=== PATIENT | female | born 1975 | race Caucasian/White ===

== ENCOUNTER 2016-07-08 15:05 | Emergency (ER) | payer BC, MEDICAID ==
[2016-07-08] MEDS ORDERED: Sodium Chloride 0.9% 1,000 ML IV ONE (15:40)
--- NOTE | 2016-07-08 15:50 | EDM.PDOC ---
ED HPI NEURO - General Chief Complaint: Neuro Symptoms/Deficits Time Seen by Provider: 07/08/16 15:25 Source of Information: Reports: EMS, Family History Limitations: Reports: Altered mental status - History of Present Illness INITIAL COMMENTS - FREE TEXT/NARRATIVE: Patient brought to ER via ambulance with report of being unresponsive. Her mother and father are here and say they last talked to her and know her to be normal four days ago. She lives with her boyfriend who is currently at work; he told them she has been sleeping all weekend. He is at work and I am trying to reach him for further details. She takes Clonazepam daily and her parents tell me she just received in the mail today a supply of 200 tablets of 1 mg Clonazepam from [facility]. She also filled Clonazepam 1 mg #30 tablets on 05/24 and 06/20 at [facility]. These bottles could not be found per her parents. Pt received Narcan IM and intranasal (two doses) en route with no response or improvement. Finger stick glucose in ER is 76. Pt's parents tell me she has had two episodes similar to this when she lived in [place] and was found to be overdose related but not sure what meds. - Related Data Allergies/ADRs: Allergies Allergy/AdvReac Type Severity Reaction Status Date / Time desvenlafaxine succinate Allergy Other Verified 07/08/16 15:19 [From [employer]] Home Meds: Home Meds ALPRAZolam [Alprazolam] 0.25 mg PO Q8H PRN 08/21/15 [History] DULoxetine HCl [Cymbalta] 60 mg PO DAILY 08/21/15 [History] Metoprolol Succinate [Toprol XL 50mg] 50 mg PO DAILY 08/21/15 [History] Pantoprazole Sodium [Pantoprazole Sodium] 40 mg PO DAILY 08/21/15 [History] Albuterol Sulfate [Proventil Hfa] 2 puff INH Q4H PRN 07/08/16 [History] ClonazePAM [KlonoPIN] 1 mg PO BEDTIME 07/08/16 [History] Gabapentin [Neurontin] 600 mg PO TID 07/08/16 [History] Zolpidem Tartrate [Ambien Cr] 1 tab PO BEDTIME PRN 07/08/16 [History] buPROPion HCl [Wellbutrin Xl] 300 mg PO DAILY 07/08/16 [History] Past Medical History Other Cardiovascular History: h/o PSVT and diastolic HTN Other Gastrointestinal History: h/o bleeding ulcers Social & Family History - Tobacco Use Smoking Status *Q: Never Smoker - Alcohol Use Days Per Week of Alcohol Use: 0 - Recreational Drug Use Recreational Drug Use: No ED ROS GENERAL - Review of Systems Review Of Systems: Unable To Obtain ED EXAM, NEURO - Physical Exam Exam: See Below Exam Limited By: Altered mental status General Appearance: WD/WN, no apparent distress, obtunded, other (eyes are open and she briefly makes eye contact but not consistently or reliably. She doesn' t cooperate with exam and resists moderately at times.) Eye Exam: left eye: abnormal pupil (sluggish to constrict with light compared to right), bilateral eye: EOMI (seems normal but patient doesn't cooperative with commands) Ears: normal external exam, normal canal, normal TMs Nose: normal inspection, normal mucosa, no blood Throat/Mouth: Normal lips, No airway compromise Head Exam: atraumatic, normocephalic Neck: supple, full range of motion Respiratory/Chest: no respiratory distress, lungs clear, normal breath sounds, no accessory muscle use Cardiovascular: regular rate, rhythm, no edema, no murmur GI/Abdominal: normal bowel sounds, soft, non tender, no organomegaly, no distention Neurological: no motor/sensory deficits (as far as I can elicit), withdraws to pain, Babinski (normal), other (Glascow score 9; Patient resists quite strongly when attempts at eye exam are made. She doesn't cooperate well with exam but does squeeze with both hands approximately equally. No sign of assymetry or weakness. No apparent facial droop but doesn't smile or speak on command.) Extremities: normal range of motion, no pedal edema Skin Exam: Warm, Dry, Intact, Normal color, No rash Course - Vital Signs Last Recorded V/S: Last Vital Signs Temp 97.4 F 07/08/16 15:25 Pulse 95 07/08/16 15:25 Resp 24 H 07/08/16 15:25 BP 142/89 H 07/08/16 15:25 Pulse Ox 98 07/08/16 15:25 - Orders/Labs/Meds Orders: Active Orders 24 hr Category Date Time Status Cervical Spine wo Cont [CT] Stat Exams 07/08/16 15:37 Ordered Head wo Cont [CT] Stat Exams 07/08/16 15:37 Ordered ACETAMINOPHEN [CHEM] Stat Lab 07/08/16 15:40 Ordered CBC WITH AUTO DIFF [HEME] Stat Lab 07/08/16 15:37 Ordered COMPREHENSIVE METABOLIC PN,CMP [CHEM] Stat Lab 07/08/16 15:37 Ordered DRUG SCREEN, URINE [URCHEM] Stat Lab 07/08/16 15:37 Uncollected ETHANOL BLOOD MEDICAL [CHEM] Stat Lab 07/08/16 15:37 Ordered HCG QUALITATIVE,SERUM [CHEM] Stat Lab 07/08/16 15:37 Ordered UA W/MICROSCOPIC [URIN] Stat Lab 07/08/16 15:37 Uncollected Sodium Chloride 0.9% @ 999 MLS/HR (1000ml) Med 07/08/16 15:40 Ordered Sodium Chloride 0.9% [Normal Saline] 1,000 ml IV .BOLUS Medication Orders Sodium Chloride (Normal Saline) 1,000 mls @ 999 mls/hr IV .BOLUS ONE Stop: 07/08/16 16:40 Labs: Laboratory Tests 07/08/16 Range/Units 15:29 POC Glucose 78 (74-106) mg/dl Meds: Medications Generic Name Dose Route Start Last Admin Trade Name Freq PRN Reason Stop Dose Admin Sodium Chloride 1,000 mls @ 999 mls/hr 07/08/16 15:40 Normal Saline IV 07/08/16 16:40 .BOLUS ONE - Re-Assessments/Exams Free Text/Narrative Re-Assessment/Exam: 07/08/16 16:41 I was able to talk with Clive (the boyfriend) who told me that Gurwinder seemed normal yesterday (Friday) morning when she left for work. She came home early from work at 5:30 but he couldn't figure out exactly why she was home early. They watched TV and visited; she seemed quite normal. She went to bed at 8:00 and was sleeping when he went to bed a few hours later. At 0230 this morning he awoke to see her standing by the bed looking down at him. She wouldn't say anything; she got back in bed and sat up for about 30 minutes; still wouldn't speak. She didn't seem uncomfortable. He doesn't think she slept much more if at all. When he got up for work this morning she was holding on to him and didn 't want to let go. He said she was making good eye contact and didn't seem to be in pain. He isn't sure if she could have taken an overdose. He doesn't really monitor what or when she takes her meds. Parents brought in pt's med bottle for Ambien #7 that was filled 07/03 and there is one Ambien tablet left; also in the bottle are a few tablets that our pharmacist determined to be Trazodone which she does not have a Rx for. Head CT appears normal to me and we are having technical difficulties with sending to the radiologist for their read/report. 07/08/16 16:54 Patient appears quite stable at departure with ambulance crew. She seems to be a little more alert but isn't speaking. Cries easily but no sign of pain. 07/08/16 16:58 5-6 attempts at a lab draw were made but unsuccessful. An IV was started but no blood could be obtained there either. I discussed case with Dr. Vieyra at ER in [facility] who accepted patient for transfer. Departure - Departure Time of Disposition: 16:40 Disposition: DC/Tfer to Acute Hospital 02 Condition: fair, serious Clinical Impression: Unresponsive state Forms: ED Department Discharge - My Orders Last 24 Hours: My Active Orders 07/08/16 15:37 Cervical Spine wo Cont [CT] Stat Head wo Cont [CT] Stat CBC WITH AUTO DIFF [HEME] Stat COMPREHENSIVE METABOLIC PN,CMP [CHEM] Stat DRUG SCREEN, URINE [URCHEM] Stat ETHANOL BLOOD MEDICAL [CHEM] Stat HCG QUALITATIVE,SERUM [CHEM] Stat UA W/MICROSCOPIC [URIN] Stat 07/08/16 15:40 ACETAMINOPHEN [CHEM] Stat Sodium Chloride 0.9% @ 999 MLS/HR (1000ml) Sodium Chloride 0.9% [Normal Saline] 1,000 ml IV .BOLUS - Assessment/Plan Last 24 Hours: My Active Orders 07/08/16 15:37 Cervical Spine wo Cont [CT] Stat Head wo Cont [CT] Stat CBC WITH AUTO DIFF [HEME] Stat COMPREHENSIVE METABOLIC PN,CMP [CHEM] Stat DRUG SCREEN, URINE [URCHEM] Stat ETHANOL BLOOD MEDICAL [CHEM] Stat HCG QUALITATIVE,SERUM [CHEM] Stat UA W/MICROSCOPIC [URIN] Stat 07/08/16 15:40 ACETAMINOPHEN [CHEM] Stat Sodium Chloride 0.9% @ 999 MLS/HR (1000ml) Sodium Chloride 0.9% [Normal Saline] 1,000 ml IV .BOLUS
[2016-07-08 16:24] VITALS: BP 130/68
== END 2016-07-08 16:45 ==
LOC: KA.ED 15:05
DX: R41.89 Other symptoms and signs involving cognitive functions and awareness (principal); Z88.8 Allergy status to other drugs, medicaments and biological substances; Z79.899 Other long term (current) drug therapy
CPT/HCPCS: 70450; 72125; 82962; 99285; J7030

== ENCOUNTER 2017-04-15 17:21 | Emergency (ER) | payer MEDICAID ==
[2017-04-15 17:33] VITALS: BP 140/94
[2017-04-15] MEDS ORDERED: Sodium Chloride 0.9% 5 ML Syringe FLUSH PRN (17:58)
[2017-04-15] MEDS ORDERED: GI Cocktail 45 ML BOTTLE PO ONE (17:58)
--- NOTE | 2017-04-15 18:46 | EDM.PDOC ---
ED HPI GENERAL MEDICAL PROBLEM - General Chief Complaint: Abdominal Pain Stated Complaint: abd pain, shortness of breath Time Seen by Provider: 04/15/17 18:17 Source of Information: Reports: Patient History Limitations: Reports: No Limitations - History of Present Illness INITIAL COMMENTS - FREE TEXT/NARRATIVE: Patient presents with complaint of mid-epigastric pain and difficult swallowing sensation. The pain started at about 10:00 and the swallowing sensation about 2 :00-3:00 (8 and 4 hours ago). She ate dinner (lasagna) around 1:00 and severe bloating along with the swallowing problems started about an hour later. She says she has had this on many occasions over the past couple of years that last typically 4-5 hours but today seems longer. The bloating has subsided. On questioning about what type of meals tend to produce the bloating and mid- epigastric pain she says usually high fat content. Her mother had to have cholecystectomy years ago. She has lost 20+ pounds in last 6 months. 2-3 years ago patient had an EGD with Dr. Lucero with cauterization of 2 ulcers and discovery of a diaphragmatic hernia. Upper Abdominal Pain Score (Numeric/FACES): 3 - Related Data Allergies Allergy/AdvReac Type Severity Reaction Status Date / Time desvenlafaxine succinate Allergy Other Verified 04/15/17 17:33 [From [employer]] Home Meds: Home Meds Pantoprazole Sodium [Pantoprazole Sodium] 40 mg PO DAILY 08/21/15 [History] Albuterol Sulfate [Proventil Hfa] 2 puff INH Q4H PRN 07/08/16 [History] Lisinopril [Prinivil] 5 mg PO DAILY 04/15/17 [History] Past Medical History HEENT History: Reports: Impaired Vision Cardiovascular History: Reports: Other (See Below) Other Cardiovascular History: h/o PSVT and diastolic HTN Gastrointestinal History: Reports: GERD, PUD, Other (See Below) Other Gastrointestinal History: h/o bleeding ulcers, diaphramatic hernia Musculoskeletal History: Reports: Back Pain, Chronic, Fibromyalgia Neurological History: Reports: Migraines Psychiatric History: Reports: Anxiety, Depression, Psych Hospitalization(s) - Infectious Disease History Infectious Disease History: Reports: Chicken Pox - Past Surgical History Head Surgeries/Procedures: Reports: None HEENT Surgical History: Reports: LASIK, Oral Surgery, Tonsillectomy Cardiovascular Surgical History: Reports: None GI Surgical History: Reports: EGD, Other (See Below) Other GI Surgeries/Procedures: Abdominoplasty 5 years ago Neurological Surgical History: Reports: None Musculoskeletal Surgical History: Reports: None Dermatological Surgical History: Reports: Other (See Below) Social & Family History - Family History Family Medical History: Noncontributory - Tobacco Use Smoking Status *Q: Never Smoker - Caffeine Use Caffeine Use: Reports: Soda Other Caffeine Use: rarely - Alcohol Use Days Per Week of Alcohol Use: 0 - Recreational Drug Use Recreational Drug Use: No ED ROS GENERAL - Review of Systems Review Of Systems: See Below Constitutional: Denies: Fever, Malaise, Weakness HEENT: Denies: Throat Pain, Vision Change Respiratory: Reports: Shortness of Breath (dyspnea sensation with the swallowing difficulty but no true difficulty breathing) Cardiovascular: Denies: Chest Pain, Lightheadedness, Syncope GI/Abdominal: Reports: Abdominal Pain. Denies: Constipation, Diarrhea, Nausea, Vomiting : Denies: Dysuria, Flank Pain Musculoskeletal: Reports: No Symptoms Skin: Denies: Cyanosis, Jaundice, Mottled, Pallor, Diaphoresis Neurological: Denies: Confusion, Dizziness, Seizure, Syncope, Trouble Speaking, Difficulty Walking Psychiatric: Denies: Agitation, Anxiety (She has been on medications for anxiety but stopped them 3 weeks ago without discussing with her doctor.), Confusion ED EXAM, GI/ABD - Physical Exam Exam: See Below Exam Limited By: No Limitations General Appearance: Alert, WD/WN, No Apparent Distress Eyes: Bilateral: Normal Appearance, EOMI Ears: Normal External Exam, Hearing Grossly Normal Nose: Normal Inspection, No Blood Throat/Mouth: Normal Lips, Normal Voice, No Airway Compromise Head: Atraumatic, Normocephalic Neck: Full Range of Motion Respiratory/Chest: No Respiratory Distress, Lungs Clear, Normal Breath Sounds, No Accessory Muscle Use Cardiovascular: Regular Rate, Rhythm, No Murmur GI/Abdominal Exam: Soft, No Organomegaly, No Distention, No Abnormal Bruit, Tender (mid-epigastric as well as positive Rosenthal Sign.), Abnormal Bowel Sounds (increased at this time) Back Exam: No: CVA Tenderness (L), CVA Tenderness (R) Extremities: Normal Inspection, Normal Range of Motion, Non-Tender Neurological: Alert, Oriented, Normal Cognition, No Motor/Sensory Deficits Psychiatric: Normal Affect, Normal Mood Skin Exam: Warm, Dry, Intact, Normal Color, No Rash Course - Vital Signs Last Recorded V/S: Last Vital Signs Temp 98.1 F 04/15/17 17:29 Pulse 99 04/15/17 17:29 Resp 16 04/15/17 17:29 BP 140/94 H 04/15/17 17:29 Pulse Ox 100 04/15/17 17:29 - Orders/Labs/Meds Orders: Active Orders 24 hr Category Date Time Status Peripheral IV Care [RC] . DIRECTED Care 04/15/17 17:58 Active Sodium Chloride 0.9% [Syrex Flush] Med 04/15/17 17:58 Active 5 ml FLUSH Q8HR PRN Peripheral IV Insertion Adult [OM.PC] Routine Oth 04/15/17 17:58 Ordered Medication Orders Sodium Chloride (Syrex Flush) 5 ml FLUSH Q8HR PRN PRN Reason: Keep Vein Open Labs: Laboratory Tests 04/15/17 04/15/17 04/15/17 Range/Units 17:56 17:56 17:56 WBC 12.1 H (5.0-10.0) 10^3/uL RBC 4.37 (3.80-5.50) 10^6/uL Hgb 13.0 (12.0-16.0) g/dL Hct 40.6 (37.0-47.0) % MCV 92.8 H (82.0-92.0) fL MCH 29.7 (27.0-31.0) pg MCHC 32.0 (32.0-36.0) g/dL RDW 13.2 (11.5-14.5) % Plt Count 413 H (150-300) 10^3/uL MPV 7.6 (7.4-10.4) fL Neut % (Auto) 68.2 (50.0-70.0) % Lymph % (Auto) 26.7 (20.0-40.0) % [place] % (Auto) 4.4 (2.0-8.0) % Eos % (Auto) 0.2 L (1.0-3.0) % Baso % (Auto) 0.5 (0.0-1.0) % Neut # (Auto) 8.3 H (2.5-7.0) 10^3/uL Lymph # (Auto) 3.2 (1.0-4.0) 10^3/uL [place] # (Auto) 0.5 (0.1-0.8) 10^3/uL Eos # (Auto) 0.0 L (0.1-0.3) 10^3/uL Baso # (Auto) 0.1 (0.0-0.1) 10^3/uL Sodium Cancelled 138 Potassium Cancelled 3.7 Chloride Cancelled 102 Carbon Dioxide Cancelled 27.5 BUN Cancelled 20 Creatinine Cancelled 0.93 Est Cr Clr Drug Dosing Cancelled 66.66 Estimated GFR (MDRD) Cancelled > 60 Glucose Cancelled 108 Calcium Cancelled 9.7 Total Bilirubin 0.2 (0.2-1.0) mg/dL AST 19 (15-37) U/L ALT 30 (12-78) U/L Alkaline Phosphatase 103 (46-116) IU/L Total Protein 7.9 (6.4-8.2) g/dL Albumin 4.32 (3.00-4.80) g/dL Lipase 178 (73-393) U/L Meds: Medications Generic Name Dose Route Start Last Admin Trade Name Freq PRN Reason Stop Dose Admin Sodium Chloride 5 ml 04/15/17 17:58 Syrex Flush FLUSH Q8HR PRN Keep Vein Open Discontinued Medications Generic Name Dose Route Start Last Admin Trade Name Freq PRN Reason Stop Dose Admin Al Hydroxide/Mg Hydroxide 45 ml 04/15/17 17:58 04/15/17 18:01 Gi Cocktail PO 04/15/17 17:59 45 ml ONETIME ONE Administration Ketorolac Tromethamine 60 mg 04/15/17 19:24 Toradol IM 04/15/17 19:25 ONETIME ONE - Re-Assessments/Exams Free Text/Narrative Re-Assessment/Exam: 04/15/17 19:17 Patient remained stable throughout ER course. The GI cocktail didn't affect the mid-epigastric pain at all but did numb up the throat. We discussed findings and possible etiologies of these symptoms. I feel this is most likely related to gallbladder disease and recommend US which we can't get tonight in ER but she can get tomorrow at the clinic. We discussed CT tonight but she prefers to wait and get US. Labs are basically normal. I also want her to make sure and discuss her cessation of her medications with her PCP to determine if that is a good plan for the jail. She would like something for pain before she leaves; we will give toradol IM. Patient stable and comfortable at discharge. Departure - Departure Time of Disposition: 19:27 Disposition: Home, Self-Care 01 Condition: Good Clinical Impression: Positive Rosenthal's Sign, Midepigastric pain - Discharge Information Forms: ED Department Discharge Additional Instructions: 1. Follow up with your PCP tomorrow for recheck and abdominal ultrasound. 2. Avoid fatty foods as they seem to trigger and exacerbate your symptoms. 3. Return to ER if needed for worsening. - My Orders Last 24 Hours: My Active Orders 04/15/17 17:58 Peripheral IV Care [RC] . DIRECTED Sodium Chloride 0.9% [Syrex Flush] 5 ml FLUSH Q8HR PRN Peripheral IV Insertion Adult [OM.PC] Routine - Assessment/Plan Last 24 Hours: My Active Orders 04/15/17 17:58 Peripheral IV Care [RC] . DIRECTED Sodium Chloride 0.9% [Syrex Flush] 5 ml FLUSH Q8HR PRN Peripheral IV Insertion Adult [OM.PC] Routine
[2017-04-15 19:14] LABS: CHLORIDE,CL 102 mmol/L (98-115); SODIUM,NA 138 mmol/L (136-145)
[2017-04-15] MEDS ORDERED: Ketorolac 60 MG/2 ML SDV IM ONE (19:24)
== END 2017-04-15 19:30 | disposition home or self-care (01) ==
LOC: KA.ED 17:21
DX: R10.13 Epigastric pain (principal); R19.8 Other specified symptoms and signs involving the digestive system and abdomen; I10 Essential (primary) hypertension; Z88.8 Allergy status to other drugs, medicaments and biological substances; Z79.899 Other long term (current) drug therapy
CPT/HCPCS: 80053; 83690; 85025; 96372; 99284; A9270; J1885

== ENCOUNTER 2017-05-09 06:45 | Emergency (ER) | payer MEDICAID ==
[2017-05-09 07:29] VITALS: BP 133/71
--- NOTE | 2017-05-09 07:46 | EDM.PDOC ---
ED HPI GENERAL MEDICAL PROBLEM - General Chief Complaint: Abdominal Pain Stated Complaint: abd pain Time Seen by Provider: 05/09/17 07:37 Source of Information: Reports: Patient History Limitations: Reports: No Limitations - History of Present Illness INITIAL COMMENTS - FREE TEXT/NARRATIVE: Patient is a 42-year-old female who presents to the emergency Department this morning with a complaint of diffuse abdominal pain. Patient underwent laparoscopic cholecystectomy yesterday at [facility]. Patient states no complaints postop until this a.m. Moderate to severe pain began this morning. She became concerned and presented to the ER. Patient denies fever, nausea, vomiting, diarrhea, has been able to urinate, and is taking narcotic pain medicine without relief. 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(s) Right Upper Abdominal Pain Score (Numeric/FACES): 9 - Related Data Allergies Allergy/AdvReac Type Severity Reaction Status Date / Time desvenlafaxine succinate Allergy Other Verified 05/09/17 07:19 [From [facility]] Home Meds: Home Meds Pantoprazole Sodium [Pantoprazole Sodium] 40 mg PO DAILY 08/21/15 [History] Albuterol Sulfate [Proventil Hfa] 2 puff INH Q4H PRN 07/08/16 [History] Lisinopril [Prinivil] 5 mg PO DAILY 04/15/17 [History] Cholecalciferol (Vitamin D3) [Vitamin D3] 1,000 units PO DAILY 05/09/17 [History ] Hydrocodone/Acetaminophen [Strang 5-325] 1 - 2 tab PO Q4H PRN 05/09/17 [History] Magnesium Oxide [Magnesium] 1,000 mg PO DAILY 05/09/17 [History] Milk Thistle/Nac/Dandel/Turmer [Liver Complex Tablet] 1 cap PO DAILY 05/09/17 [ History] Multivitamin [Multivitamins] 1 cap PO DAILY 05/09/17 [History] Ondansetron [Zofran ODT] 4 mg PO Q6H PRN #10 tab 05/09/17 [Rx] QUEtiapine Fumarate [Quetiapine Fumarate] 50 mg PO ASDIRECTED 05/09/17 [History] SUMAtriptan Succinate [Imitrex] 100 mg PO ASDIRECTED PRN 05/09/17 [History] hydrOXYzine HCl [hydrOXYzine] 25 mg PO QID PRN 05/09/17 [History] Past Medical History HEENT History: Reports: Impaired Vision Cardiovascular History: Reports: Other (See Below) Other Cardiovascular History: h/o PSVT and diastolic HTN Gastrointestinal History: Reports: GERD, PUD, Other (See Below) Other Gastrointestinal History: h/o bleeding ulcers, diaphramatic hernia Musculoskeletal History: Reports: Back Pain, Chronic, Fibromyalgia Neurological History: Reports: Migraines Psychiatric History: Reports: Anxiety, Depression, Psych Hospitalization(s) - Infectious Disease History Infectious Disease History: Reports: Chicken Pox - Past Surgical History Head Surgeries/Procedures: Reports: None HEENT Surgical History: Reports: LASIK, Oral Surgery, Tonsillectomy Cardiovascular Surgical History: Reports: None GI Surgical History: Reports: EGD, Other (See Below) Other GI Surgeries/Procedures: Abdominoplasty 5 years ago Neurological Surgical History: Reports: None Musculoskeletal Surgical History: Reports: None Dermatological Surgical History: Reports: Other (See Below) Social & Family History - Family History Family Medical History: Noncontributory - Tobacco Use Smoking Status *Q: Never Smoker - Caffeine Use Caffeine Use: Reports: Soda Other Caffeine Use: rarely - Alcohol Use Days Per Week of Alcohol Use: 0 - Recreational Drug Use Recreational Drug Use: No ED ROS GENERAL - Review of Systems Review Of Systems: ROS reveals no pertinent complaints other than HPI. Constitutional: Reports: No Symptoms HEENT: Reports: No Symptoms Respiratory: Reports: No Symptoms Cardiovascular: Reports: No Symptoms Endocrine: Reports: No Symptoms GI/Abdominal: Reports: Abdominal Pain. Denies: Nausea, Vomiting : Reports: Urinary Retention Musculoskeletal: Reports: No Symptoms Skin: Reports: No Symptoms Neurological: Reports: No Symptoms Psychiatric: Reports: No Symptoms Hematologic/Lymphatic: Reports: No Symptoms Immunologic: Reports: No Symptoms ED EXAM, GI/ABD - Physical Exam Exam: See Below Exam Limited By: No Limitations General Appearance: Alert, WD/WN, Moderate Distress Throat/Mouth: Normal Inspection, Normal Oropharynx, No Airway Compromise Head: Atraumatic, Normocephalic Neck: Normal Inspection Respiratory/Chest: No Respiratory Distress, Lungs Clear, Normal Breath Sounds, No Accessory Muscle Use, Chest Non-Tender Cardiovascular: Regular Rate, Rhythm, No Murmur GI/Abdominal Exam: Soft, Guarding, Tender (Diffusely), Other (Trocar incision sites covered with bandages, no discharge or bleeding noted) Back Exam: Normal Inspection. No: CVA Tenderness (L), CVA Tenderness (R) Extremities: Normal Inspection, No Pedal Edema Neurological: Alert, Oriented, Normal Cognition Psychiatric: Normal Affect Skin Exam: Warm, Dry, Intact Course - Vital Signs Last Recorded V/S: Last Vital Signs Temp 98.1 F 05/09/17 07:26 Pulse 75 05/09/17 07:26 Resp 16 05/09/17 07:26 BP 133/71 05/09/17 07:26 Pulse Ox 99 05/09/17 07:26 - Orders/Labs/Meds Orders: Active Orders 24 hr Category Date Time Status Abdomen Pelvis w Cont [CT] Stat Exams 05/09/17 07:13 Ordered Abdomen w Cont [CT] Stat Exams 05/09/17 07:10 Stop Req CMP [COMPREHENSIVE METABOLIC PN,CMP] [CHEM] Stat Lab 05/09/17 07:08 Ordered LIPASE [CHEM] Stat Lab 05/09/17 07:08 Ordered UA W/MICROSCOPIC [URIN] Stat Lab 05/09/17 07:09 Results Labs: Laboratory Tests 05/09/17 05/09/17 Range/Units 07:08 07:09 WBC 8.5 (5.0-10.0) 10^3/uL RBC 3.75 L (3.80-5.50) 10^6/uL Hgb 11.1 L (12.0-16.0) g/dL Hct 34.0 L (37.0-47.0) % MCV 90.6 (82.0-92.0) fL MCH 29.7 (27.0-31.0) pg MCHC 32.7 (32.0-36.0) g/dL RDW 12.3 (11.5-14.5) % Plt Count 383 H (150-300) 10^3/uL MPV 6.7 L (7.4-10.4) fL Neut % (Auto) 67.6 (50.0-70.0) % Lymph % (Auto) 24.4 (20.0-40.0) % Bucks % (Auto) 7.1 (2.0-8.0) % Eos % (Auto) 0.2 L (1.0-3.0) % Baso % (Auto) 0.7 (0.0-1.0) % Neut # (Auto) 5.7 (2.5-7.0) 10^3/uL Lymph # (Auto) 2.1 (1.0-4.0) 10^3/uL Bucks # (Auto) 0.6 (0.1-0.8) 10^3/uL Eos # (Auto) 0.0 L (0.1-0.3) 10^3/uL Baso # (Auto) 0.1 (0.0-0.1) 10^3/uL Urine Color Yellow (YELLOW) Urine Appearance Slightly cloudy H (CLEAR) Urine pH 6.0 (5.0-9.0) Ur Specific [place] 1.015 (1.005-1.030) Urine Protein Negative (NEGATIVE) mg/dL Urine Glucose (UA) Negative (NEGATIVE) mg/dL Urine Ketones Negative (NEGATIVE) mg/dL Urine Occult Blood Negative (NEGATIVE) Urine Nitrite Negative (NEGATIVE) Urine Bilirubin Negative (NEGATIVE) Urine Urobilinogen 0.2 (0.2-1.0) E.U./dL Ur Leukocyte Esterase Negative (NEGATIVE) Meds: Medications Discontinued Medications Generic Name Dose Route Start Last Admin Trade Name Sharq PRN Reason Stop Dose Admin Hydromorphone HCl Confirm 05/09/17 07:35 Dilaudid Administered 05/09/17 07:36 Dose 1 mg .ROUTE .STK-MED ONE Hydromorphone HCl 0.5 mg 05/09/17 07:37 Dilaudid IVPUSH 05/09/17 07:38 ONETIME ONE Ondansetron HCl Confirm 05/09/17 07:35 Zofran Administered 05/09/17 07:36 Dose 4 mg .ROUTE .STK-MED ONE Ondansetron HCl 4 mg 05/09/17 07:37 Zofran IVPUSH 05/09/17 07:38 ONETIME ONE - Radiology Interpretation Free Text/Narrative:: CT abdomen and pelvis with IV contrast shows no acute process and only postoperative changes. CT Results Date: 05/09/17 - Re-Assessments/Exams Free Text/Narrative Re-Assessment/Exam: 05/09/17 08:14 Patient afebrile, nontoxic appearing. Vital signs stable. Pain resolved. Patient will follow-up with surgical services as scheduled. Departure - Departure Time of Disposition: 08:15 Disposition: Home, Self-Care 01 Condition: Good Clinical Impression: Postoperative abdominal pain Abdominal pain Qualifiers: Abdominal location: generalized Qualified Code(s): R10.84 - Generalized abdominal pain - Discharge Information Instructions: Pain Medicine Instructions, [id number], Abdominal Pain, Adult, [id number], Pain Relief Preoperatively and Postoperatively Referrals: Caitlin Bryant, [facility]ER [Primary Care Provider] - Additional Instructions: Follow-up with PCP and surgical services as scheduled - My Orders Last 24 Hours: My Active Orders 05/09/17 07:08 CMP [COMPREHENSIVE METABOLIC PN,CMP] [CHEM] Stat LIPASE [CHEM] Stat 05/09/17 07:09 UA W/MICROSCOPIC [URIN] Stat 05/09/17 07:10 Abdomen w Cont [CT] Stat 05/09/17 07:13 Abdomen Pelvis w Cont [CT] Stat - Assessment/Plan Last 24 Hours: My Active Orders 05/09/17 07:08 CMP [COMPREHENSIVE METABOLIC PN,CMP] [CHEM] Stat LIPASE [CHEM] Stat 05/09/17 07:09 UA W/MICROSCOPIC [URIN] Stat 05/09/17 07:10 Abdomen w Cont [CT] Stat 05/09/17 07:13 Abdomen Pelvis w Cont [CT] Stat Assessment:: Abdominal pain postoperatively Plan: Follow-up with PCP and surgical services as scheduled
[2017-05-09] MEDS: HYDROmorphone 1 MG/ML Syringe ONE (07:56)
[2017-05-09] MEDS: HYDROmorphone 1 MG/ML Syringe IVPUSH ONE (07:57)
[2017-05-09] MEDS: Ondansetron 4 MG/2 ML SDV ONE (07:57)
[2017-05-09] MEDS: Ondansetron 4 MG/2 ML SDV IVPUSH ONE (07:57)
[2017-05-09] MEDS: Sodium Chloride 0.9% 50 ML IV SCH (08:00)
[2017-05-09] MEDS: Iopamidol 612 MG/ML 75 ML Bottle IV ONE (08:00)
== END 2017-05-09 08:30 | disposition home or self-care (01) ==
LOC: KA.ED 06:45
DX: G89.18 Other acute postprocedural pain (principal); R10.11 Right upper quadrant pain; F41.9 Anxiety disorder, unspecified; F32.9 Major depressive disorder, single episode, unspecified; Z88.8 Allergy status to other drugs, medicaments and biological substances; Z79.899 Other long term (current) drug therapy; Z98.890 Other specified postprocedural states
CPT/HCPCS: 36415; 74177; 80053; 81001; 83690; 85025; 96374; 96375; 99284; J1170; J2405; J7050; Q9967